=== PATIENT | female | born 2000 | race Asian ===

== ENCOUNTER 2024-05-04 21:58 | Emergency (ER) | payer OTHER, SELFPAY ==
--- NOTE | ~2024-05-04 | XR_ITS ---
CLINICAL HISTORY: injury ? dislocation 4 view left knee Comparison: None Findings: No acute fracture or dislocation. Moderate effusion present. Lateral positioning of the patella is nonspecific and can be seen with patellofemoral tracking syndrome. No radiopaque retained foreign body. IMPRESSION: 1. No acute fracture or dislocation. 2. Moderate effusion. This document has been electronically signed by: Rashaad Butler MD on 05/04/2024 23:55:15
[2024-05-04 22:48] VITALS: BP 124/71; PULSE 81; RESP 18; TEMP 36.9; O2SAT 97; BMI 24.8
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
[2024-05-05] MEDS: Morphine Sulfate 4 MG/ML CARTRIDGE IVPUSH (02:40)
--- NOTE | 2024-05-05 03:11 | PC.NURSE ---
Pt medicated per MAY, reports some pain relief. Negative imaging, right knee immobilizer applied, awaiting dc home.
[2024-05-05 03:19] VITALS: BP 135/85; PULSE 69; RESP 16; TEMP 36.8; O2SAT 98
[2024-05-05 03:36] VITALS: BP 135/85; PULSE 69; RESP 16; TEMP 36.8; O2SAT 98
== END 2024-05-05 03:37 | disposition home or self-care (01) ==
PROVIDERS: Emergency Provider Emergency Medicine Emergency Medical Services; PCP Nurse Practitioner Family
DX: M70.52 Other bursitis of knee, left knee (principal); S80.02XA Contusion of left knee, initial encounter; W22.8XXA Striking against or struck by other objects, initial encounter; Y92.9 Unspecified place or not applicable; Y93.89 Activity, other specified; Y99.9 Unspecified external cause status
CPT/HCPCS: 73564; 96374; 99284; J2270

== ENCOUNTER → 2024-05-04 23:29 | Outpatient (BNV) | payer SELFPAY | PROVIDERS: PCP Nurse Practitioner Family; Visit Provider Radiology Neuroradiology | DX: M25.562 Pain in left knee (principal) | CPT/HCPCS: 73564 ==